=== PATIENT | male | born 1950 | race Caucasian/White ===

== ENCOUNTER → 2018-11-24 | Outpatient (CLI) | payer MEDICARE ==
--- NOTE | 2018-11-27 06:49 | PE ---
EXAMINATION TYPE: PET CT fusion skull to thigh DATE OF EXAM: 11/24/2018 COMPARISON: NONE HISTORY: Solitary pulmonary nodule. Initial staging exam. No prior chemotherapy, radiation or surgery . TECHNIQUE: Following the intravenous administration of 11.359 mCi of F-18 FDG, whole body images are performed from the skull base to the midthigh. Images are reviewed on the computer in the coronal, axial, and sagittal planes. Reconstructed rotating images are created on independent workstation and reviewed on the computer. A localization and attenuation correction CT is performed in conjunction with the PET scan. SCAN: Initial FINDINGS: Mediastinal background: 1.79 Abdominal background: 2.81 SKULL BASE AND NECK: No suspicious hypermetabolic uptake. CHEST, MEDIASTINUM, AND HILAR REGION: There are calcified pleural plaques seen posteriorly. There is a consolidation of the left lower lobe with swirling vessels leading to this adjacent to the thickene d calcified pleural plaquing meeting criteria for round atelectasis. This has a maximum SUV of 1.24. Similar areas seen medially within the right lower lobe with a maximum SUV of 1.36. Within the right middle lobe there is an additional area of consolidation extending to the pleural surface and abuttin g the pleural plaque with a maximum SUV of 1.2. This is irregularly marginated and measures approxima tely 2.8 x 2.7 cm in transverse by anterior posterior dimension. Again this is favored to represent r ound atelectasis. Other areas of scattered atelectasis and pleural plaquing are seen within the lungs . Moderate background emphysematous change is seen. ABDOMEN AND PELVIS: There is marked uptake in the cecum in comparison to the remainder of the colon. This has a maximum SUV of 6.66. Some heterogenous uptake is also seen in the prostate gland with a ma ximum SUV of 3.96. Focal hypermetabolic activity in the right abductor musculature is also seen with a maximum SUV of 2.88. OSSEOUS STRUCTURES: No suspicious hypermetabolic uptake. OTHER CT: Numerous pancolonic diverticula are seen with long segment bowel wall thickening likely on the basis of chronic diverticulitis. No inflammatory fat stranding to suggest acute diverticulitis. N o dilated large or small bowel. Unenhanced abdominal viscera demonstrate no suspicious abnormality. D iastases recti is present. Extensive atherosclerosis of the abdominal aorta and its branches. Post CA BG changes of the chest are seen. Mild retroareolar gynecomastia is slight activity. Mild mucosal thi ckening of the maxillary sinuses and rightward nasal septal deviation are present. Cerebral atrophy i s partially seen. Moderate multilevel degenerative changes of the spine. Cardiomegaly is noted. Right humeral arthroplasty is evident. IMPRESSION: 1. 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 Continued surveillance is recommended to ensure no interval growth. 3. Marked hypermetabolic activity in the cecum is concerning for neoplasm and colonoscopy is recommen ded. 4. Sequela of pancolonic chronic diverticulitis without evidence of acute diverticulitis. 5. Focal hypermetabolic uptake near the right ischium in the abductor musculature may relate to muscu lar strain. 6. Heterogenous prostate gland uptake. Correlate with PSA.
== END | disposition home or self-care (01) ==
LOC: RADPETMAIN 16:56
PROVIDERS: ATTEND Internal Medicine Critical Care Medicine
DX: R91.8 Other nonspecific abnormal finding of lung field (principal)
CPT/HCPCS: 78815; A9552

== ENCOUNTER → 2021-11-20 | Outpatient (CLI) | payer MEDICARE ==
--- NOTE | 2021-11-20 10:27 | XR ---
EXAMINATION TYPE: XR chest 2V DATE OF EXAM: 11/20/2021 COMPARISON: 09/23/2011 HISTORY: Shortness of breath TECHNIQUE: Frontal and lateral views of the chest are obtained. FINDINGS: Scattered senescent parenchymal changes noted. Hyperinflation compatible with COPD. Small right basilar pleural effusion as well as increased markings may reflect atelectasis or develop ing infiltrate. Correlate clinically. Heart size is stable. Mediastinal structures are stable and grossly unremarkable. No evidence for hilar prominence. Degenerative changes dorsal spine. IMPRESSION: 1. Small right basilar pleural effusion as well as increased markings may reflect atelectasis or deve loping infiltrate. Correlate clinically.
--- NOTE | 2021-11-20 11:08 | CT ---
EXAMINATION TYPE: CT abdomen pelvis wo con DATE OF EXAM: 11/20/2021 COMPARISON: PET/CT 11/24/2018 HISTORY: Hernia CT DLP: 366.7 mGycm Examination of the solid and hollow viscera is limited given the lack of contrast. FINDINGS: LUNG BASES: No evidence for nodule. Triangular-shaped density within the right middle lobe has demons trated hypometabolic activity on PET CT as have basilar rounded masses. The findings are likely refle ctive of the bilateral rounded atelectasis in a patient with asbestosis. Cardiomegaly. LIVER/GB: The gallbladder surgically absent. No space-occupying hepatic lesion. PANCREAS: No pancreatic mass identified. No inflammatory process seen. SPLEEN: No evidence for splenomegaly. No intrasplenic lesions seen. ADRENALS: No adrenal nodules identified. No evidence for thickening. KIDNEYS: No evidence for renal mass. Nonobstructing bilateral nephrolithiasis. Renal vascular calcifi cations. No hydronephrosis. BOWEL: Appendix has a normal appearance. No evidence of bowel obstruction. No inflammatory process. S igmoid diverticulosis without diverticulitis. Lymph nodes: No evidence for adenopathy greater than 1 cm. Abdominal aorta: Atheromatous changes seen. No evidence for aneurysm. Genital organs: No significant abnormality. Other: Right hip prosthesis. Advanced degenerative change L4-5 and L5-S1. IMPRESSION: 1. No evidence for hernia. 2. Nonobstructing nephrolithiasis. 2. Probable areas of rounded atelectasis in a patient with known asbestos related pleural disease.
[2021-11-20 18:50] LABS: HCT 50.2 % (39.6-50.0); MCH 30.9 pg (27.0-32.0); MCHC 31.9 g/dL (32.0-37.0); MCV 97.1 fL (80.0-97.0); NRBC Per 100 WBC 0 /100 WBCS (0.0-0.0); Platelet Count 369 X 10*3/uL (140-440); RBC 5.17 X 10*6/uL (4.40-5.60); RDW 14.1 % (11.5-14.5); WBC 8.12 X 10*3/uL (4.50-10.00)
[2021-11-20 20:43] LABS: Anion Gap 10.1 mmol/L (10.00-18.00); BUN/Creat Ratio 20.86 Ratio (12.00-20.00); Blood Urea Nitrogen 24.2 mg/dL (9.0-27.0); Calcium 9.7 mg/dL (8.7-10.3); Non-African American GFR(CKD) 62.1 (60.0-200.0); Potassium 4.7 mmol/L (3.5-5.5)
== END | disposition home or self-care (01) ==
LOC: RADCTMAIN 09:52
PROVIDERS: ATTEND Surgery Plastic and Reconstructive Surgery
DX: J90 Pleural effusion, not elsewhere classified (principal); N20.0 Calculus of kidney; I11.9 Hypertensive heart disease without heart failure
CPT/HCPCS: 36415; 71046; 74176; 80048; 85027; 93005